=== PATIENT | female | born 1995 | race Native Hawaiian/Other Pacific Islander ===

== ENCOUNTER 2020-11-17 01:43 | Emergency (ER) | payer BC ==
[~2020-11-17] VITALS: Ht 160 cm; Wt 57.8 kg
[2020-11-17 01:50] VITALS: BP 111/53
== END 2020-11-17 06:00 | disposition home or self-care (01) ==
LOC: ER 01:44
DX: T19.2XXA Foreign body in vulva and vagina, initial encounter (principal); Z88.2 Allergy status to sulfonamides; X58.XXXA Exposure to other specified factors, initial encounter; Y93.89 Activity, other specified; Y92.89 Other specified places as the place of occurrence of the external cause; Y99.8 Other external cause status
CPT/HCPCS: 99284